=== PATIENT | male | born 1970 | race Caucasian/White ===

== ENCOUNTER 2017-12-01 09:44 | Emergency (ER) | payer OTHER ==
[~2017-12-01] VITALS: Ht 180.3 cm; Wt 107.5 kg
[2017-12-01 09:57] VITALS: Ht 180.3 cm; Wt 107.5 kg
[2017-12-01 12:30] VITALS: BP 161/92
== END 2017-12-01 12:49 | disposition home or self-care (01) ==
LOC: ED 09:44
DX: R04.0 Epistaxis (principal); Z00.00 Encounter for general adult medical examination without abnormal findings

== ENCOUNTER 2018-01-11 11:18 | Emergency (ER) | payer OTHER ==
[~2018-01-11] VITALS: Ht 180.3 cm; Wt 107.5 kg
[2018-01-11 11:22] VITALS: BP 157/103; Ht 180.3 cm; Wt 107.5 kg
== END 2018-01-11 11:52 | disposition home or self-care (01) ==
LOC: ED 11:18
DX: R04.0 Epistaxis (principal); I10 Essential (primary) hypertension; H61.22 Impacted cerumen, left ear

== ENCOUNTER 2018-03-15 19:47 | Emergency (ER) | payer OTHER ==
[~2018-03-15] VITALS: Ht 180.3 cm; Wt 108.9 kg
[2018-03-15 19:56] VITALS: Ht 180.3 cm; Wt 108.9 kg
[2018-03-15 21:03] VITALS: BP 146/94
== END 2018-03-15 21:03 | disposition home or self-care (01) ==
LOC: ED 19:47
DX: R04.0 Epistaxis (principal); I10 Essential (primary) hypertension

== ENCOUNTER 2018-03-23 12:38 | Emergency (ER) | payer OTHER ==
[~2018-03-23] VITALS: Ht 180.3 cm; Wt 107.6 kg
[2018-03-23 12:51] VITALS: Ht 180.3 cm; Wt 107.6 kg
[2018-03-23 14:00] VITALS: BP 149/96
== END 2018-03-23 14:00 | disposition home or self-care (01) ==
LOC: ED 12:38
DX: H61.23 Impacted cerumen, bilateral (principal)

== ENCOUNTER 2018-06-05 09:16 | Emergency (ER) | payer OTHER ==
[~2018-06-05] VITALS: Ht 180.3 cm; Wt 108.4 kg
[2018-06-05 09:23] VITALS: Ht 180.3 cm; Wt 108.4 kg
[2018-06-05 10:55] LABS: BASOPHIL % 0.2 % (0-2); PLATELET COUNT 199 x10^3mcL (130-400); RED CELL DISTRIBUTION WIDTH 13.1 % (11.5-14.5)
[2018-06-05 11:08] LABS: CALCIUM 8.5 mg/dL (8.5-10.1); CARBON DIOXIDE 23.7 mmol/L (21-32); CHLORIDE SERUM 102 mmol/L (98-107); CREATININE SERUM 1.1 mg/dL (0.7-1.3); GFR1 > 60 mL/min; GLUCOSE SERUM 109 mg/dL (74-106); POTASSIUM SERUM 3.7 mmol/L (3.5-5.1); SODIUM SERUM 136 mmol/L (136-145)
[2018-06-05 11:12] LABS: ALBUMIN 3.5 g/dL (3.4-5.0); ALKALINE PHOSPHATASE 75 U/L (46-116); ALT/SGPT 61 U/L (16-63); AST/SGOT 37 U/L (15-37); BILIRUBIN TOTAL 0.3 mg/dL (0.20-1.00); LIPASE 181 IU/L (73-393); TOTAL PROTEIN, SERUM 8.1 g/dL (6.4-8.2)
[2018-06-05 11:34] VITALS: BP 147/89
== END 2018-06-05 11:37 | disposition home or self-care (01) ==
LOC: ED 09:16
PROVIDERS: Emergency Medicine
DX: R11.2 Nausea with vomiting, unspecified (principal); F10.20 Alcohol dependence, uncomplicated
CPT/HCPCS: J2405; J7030

== ENCOUNTER 2018-09-15 08:52 | Emergency (ER) | payer OTHER ==
[~2018-09-15] VITALS: Ht 180.3 cm; Wt 95.7 kg
[2018-09-15 08:55] VITALS: Ht 180.3 cm; Wt 95.7 kg
[2018-09-15 09:53] LABS: CALCIUM 9.3 mg/dL (8.5-10.1); CARBON DIOXIDE 28.4 mmol/L (21-32); CHLORIDE SERUM 102 mmol/L (98-107); CREATININE SERUM 1.1 mg/dL (0.7-1.3); GFR1 > 60 mL/min; GLUCOSE SERUM 96 mg/dL (74-106); POTASSIUM SERUM 4.5 mmol/L (3.5-5.1); SODIUM SERUM 138 mmol/L (136-145)
[2018-09-15 09:57] LABS: ALBUMIN 4.2 g/dL (3.4-5.0); ALKALINE PHOSPHATASE 79 U/L (46-116); ALT/SGPT 41 U/L (16-63); AST/SGOT 40 U/L (15-37); BILIRUBIN TOTAL 0.37 mg/dL (0.20-1.00)
[2018-09-15 09:58] LABS: TOTAL PROTEIN, SERUM 8.7 g/dL (6.4-8.2)
[2018-09-15 10:01] LABS: BASOPHIL % 0.4 % (0-2); PLATELET COUNT 206 x10^3mcL (130-400); RED CELL DISTRIBUTION WIDTH 13.2 % (11.5-14.5)
[2018-09-15 10:25] VITALS: BP 128/88
== END 2018-09-15 10:25 | disposition home or self-care (01) ==
LOC: ED 08:52 → EDBD 08:52 → ED 10:25
PROVIDERS: Emergency Medicine
DX: R42 Dizziness and giddiness (principal); I10 Essential (primary) hypertension
CPT/HCPCS: 36415

== ENCOUNTER 2018-10-14 07:50 | Emergency (ER) | payer OTHER ==
[~2018-10-14] VITALS: Ht 180.3 cm; Wt 93.0 kg
[2018-10-14 07:53] VITALS: Ht 180.3 cm; Wt 93.0 kg
[2018-10-14 10:18] VITALS: BP 139/92
== END 2018-10-14 10:49 | disposition home or self-care (01) ==
LOC: ED 07:50
DX: R42 Dizziness and giddiness (principal); I10 Essential (primary) hypertension

== ENCOUNTER 2018-11-14 09:00 | Emergency (ER) | payer OTHER ==
[~2018-11-14] VITALS: Ht 180.3 cm; Wt 95.3 kg
[2018-11-14 09:06] VITALS: Ht 180.3 cm; Wt 95.3 kg
[2018-11-14 09:22] LABS: BASOPHIL % 0.4 % (0-2); PLATELET COUNT 199 x10^3mcL (130-400); RED CELL DISTRIBUTION WIDTH 13.1 % (11.5-14.5)
[2018-11-14 09:30] LABS: CALCIUM 9.3 mg/dL (8.5-10.1); CARBON DIOXIDE 29.1 mmol/L (21-32); CHLORIDE SERUM 104 mmol/L (98-107); GFR1 > 60 mL/min; GLUCOSE SERUM 101 mg/dL (74-106); POTASSIUM SERUM 3.9 mmol/L (3.5-5.1); SODIUM SERUM 141 mmol/L (136-145)
[2018-11-14 09:35] LABS: ALKALINE PHOSPHATASE 67 U/L (46-116); ALT/SGPT 49 U/L (16-63); AST/SGOT 23 U/L (15-37); BILIRUBIN TOTAL 0.5 mg/dL (0.20-1.00); LIPASE 187 IU/L (73-393); TOTAL PROTEIN, SERUM 8.1 g/dL (6.4-8.2)
[2018-11-14 09:58] VITALS: BP 116/85
== END 2018-11-14 09:58 | disposition home or self-care (01) ==
LOC: ED 09:00
PROVIDERS: Emergency Medicine
DX: R10.13 Epigastric pain (principal); R11.2 Nausea with vomiting, unspecified; I10 Essential (primary) hypertension; R53.81 Other malaise
CPT/HCPCS: 36415; Q0162

== ENCOUNTER 2019-02-18 21:14 | Emergency (ER) | payer OTHER ==
[~2019-02-18] VITALS: Ht 180.3 cm; Wt 90.3 kg
[2019-02-18 21:23] VITALS: Ht 180.3 cm; Wt 90.3 kg
[2019-02-18 23:04] VITALS: BP 142/89
== END 2019-02-18 23:04 | disposition home or self-care (01) ==
LOC: ED 21:14
DX: I10 Essential (primary) hypertension (principal); R42 Dizziness and giddiness

== ENCOUNTER 2020-07-06 06:02 | Emergency (ER) | payer OTHER ==
[~2020-07-06] VITALS: Ht 180.3 cm; Wt 92.1 kg
[2020-07-06 06:13] VITALS: Ht 180.3 cm; Wt 92.1 kg
[2020-07-06 07:07] LABS: BASOPHIL % 0.7 % (0.2-1.5); PLATELET COUNT 187 x10^3mcL (152-348); RED CELL DISTRIBUTION WIDTH 13.3 % (12.1-16.2)
[2020-07-06] MEDS ORDERED: ANUHCS PR (07:39)
[2020-07-06] MEDS ORDERED: MAGL PO (07:39)
[2020-07-06 07:42] LABS: CALCIUM 9.1 mg/dL (8.5-10.1); CARBON DIOXIDE 25.9 mmol/L (21-32); CHLORIDE SERUM 102 mmol/L (98-107); GFR1 > 60 mL/min; GLUCOSE SERUM 97 mg/dL (74-106); SODIUM SERUM 139 mmol/L (136-145)
[2020-07-06 07:52] VITALS: BP 130/90
[2020-07-06 07:53] LABS: ALBUMIN 4.1 g/dL (3.4-5.0); ALKALINE PHOSPHATASE 61 U/L (46-116); ALT/SGPT 42 U/L (16-63); AST/SGOT 26 U/L (15-37); BILIRUBIN TOTAL 0.3 mg/dL (0.20-1.00)
[2020-07-06 07:58] LABS: TOTAL PROTEIN, SERUM 8.4 g/dL (6.4-8.2)
== END 2020-07-06 07:52 | disposition home or self-care (01) ==
LOC: ED 06:02
PROVIDERS: Emergency Medicine
DX: K59.00 Constipation, unspecified (principal); I10 Essential (primary) hypertension